=== PATIENT | female | born 1960 | race Caucasian/White ===

== ENCOUNTER → 2016-10-02 | Outpatient (CLI) | payer BC ==
[~2016-10-02] MED LIST: ASPIRIN 32325 MG/TAB PO; CALTRATE 600600 MG PO; CEPACOL SORE TH1 LO8 MM; EFFE25TA; NO HOME MEDICATIONS; NOLVADEX 1010 MG/TAB; NORCO 325 MG-51 TAB PO; NORCO 325 MG-7.1 TAB PO
== END ==
LOC: MC.RAD 10:54
DX: Z12.31 Encounter for screening mammogram for malignant neoplasm of breast (principal)

== ENCOUNTER → 2017-10-15 | Outpatient (CLI) | payer BC | LOC: MC.RAD 12:21 | DX: Z12.31 Encounter for screening mammogram for malignant neoplasm of breast (principal); Z85.3 Personal history of malignant neoplasm of breast; Z98.890 Other specified postprocedural states ==

== ENCOUNTER → 2019-01-13 | Outpatient (CLI) | payer BC | LOC: MC.RAD 12:17 | DX: Z12.31 Encounter for screening mammogram for malignant neoplasm of breast (principal); N60.31 Fibrosclerosis of right breast; Z90.11 Acquired absence of right breast and nipple ==

== ENCOUNTER → 2020-10-06 | Outpatient (CLI) | payer OTHER ==
[~2020-10-06] MED LIST changes: +BACTRIM DS 8001 TAB PO; +PYRIDIUM 100MG100 MG PO
== END ==
LOC: MC.RAD 10:51
DX: N63.10 Unspecified lump in the right breast, unspecified quadrant (principal); N63.20 Unspecified lump in the left breast, unspecified quadrant

== ENCOUNTER 2020-12-27 05:25 | Day surgery (SDC) | payer SELFPAY ==
[2020-12-27] VITALS (19 sets, daily range): BP systolic 117–150; BP diastolic 70–96; PULSE 16–89; TEMP 98–99.1
[~2020-12-27] VITALS: Ht 154.9 cm; Wt 76.9 kg
[~2020-12-27 05:25] MED LIST changes: -BACTRIM DS 8001 TAB PO; -PYRIDIUM 100MG100 MG PO
[2020-12-27] MEDS ORDERED: BACTRIM DS 8001 TAB PO (05:56)
--- NOTE | 2020-12-27 08:40 | NUR ---
pt in CT scanner, monitor connected, Dr Bazzi in room with Dr Roy
--- NOTE | 2020-12-27 09:00 | NUR ---
Dr Bazzi con't with procedure, pt states not having any pain at this time, will con't to monitor
--- NOTE | 2020-12-27 09:18 | NUR ---
pt states is "hurting" feeling guide wire at this time fentanyl 25mcg iv and versed at 0920 0.5mg iv given for relief
--- NOTE | 2020-12-27 09:25 | NUR ---
fentanyl 25mcg iv repeated for pain with tube advancement, neph tube being secured by Dr Bazzi to left flank area
--- NOTE | 2020-12-27 09:30 | NUR ---
procedure completed, report called to same day surgery, pt transferred to cart and transferred back to same day surgery/
--- NOTE | 2020-12-27 09:45 | NUR ---
Patient returns from radiology procedure with radiology staff at 0945. She has gauze covering the insertion site of the tube placed in her left flank. The gauze is moderately saturated with serosanguinous fluid. It is not leaking around the tegaderm covering it. The tube is secured under the tegaderm. The patient is lying on her right side, with Dr. Bazzi's permission. VSS on room air.
--- NOTE | 2020-12-27 11:17 | NUR ---
Patient to the OR at this time with OR staff.
[2020-12-27] MEDS ORDERED: PYRIDIUM 100MG100 MG PO (12:49)
[2020-12-27] MEDS ORDERED: NORCO 325 MG-51 TAB PO (12:50)
--- NOTE | 2020-12-27 14:49 | NUR ---
Pt recently arrived to the floor from [facility]. She is alert although very drowsy. She does have some complaints of nausea, but reports overall feeling better. Crenshaw in place, light red output, no clots noted. Daughter present in room upon arrival, just left for a while.
--- NOTE | 2020-12-27 15:03 | NUR ---
Pt doing well. Continues to rest with eyes closed, even non labored breathing. Output is light red in color
--- NOTE | 2020-12-27 16:33 | NUR ---
1630- needs to go to BR TO VOID- REPOSITIONED RAGSDALE LINE;RELIEF PT. SAYS; URINE IS DARK RED.
--- NOTE | 2020-12-27 18:00 | NUR ---
Pt reports feeling much better. Dinner ordered and gave her ice water. Pt is starting to wake up some, but is still pretty drowsy. No needs verbalized
--- NOTE | 2020-12-27 20:30 | NUR ---
Initial shift assessment done- alert/oriented x3, drowsy, states she still feels sleepy, wondering where her glasses and cell phone is-- did fing for her in her belonging bags in closet-- is taking just a few sips of water-encouraged to drink. Denies pain at this time- states a little "sore" but does not want anything for this, Crenshaw to DD with red urine-flowing good- no clots seen. o2 at 1L/nc. Did C&DB, Called respiratory therapy to bring up an IS as ordered.
[2020-12-28 00:16] VITALS: BP 123/83; PULSE 98; TEMP 99
[2020-12-28 04:30] VITALS: BP 117/71; PULSE 88; TEMP 99.1
--- NOTE | 2020-12-28 06:01 | NUR ---
Quiet night-- did sleep well, VSS, o2 off at this time-- sats good on room air, using IS, C&DB, Crenshaw with 1000cc this shift of rust colored urine- pt denies pain- no pain meds given
[2020-12-28 07:32] VITALS: BP 102/70; PULSE 100; TEMP 97.8
--- NOTE | 2020-12-28 08:00 | NUR ---
PATIENT IS ALERT AND ORIENTED X4. PATIENT TO HAVE RAGSDALE DISCONTINUED AND TO POSSIBLY BE DISCHARGED TODAY. URINE IS REDDISH COLOR. PATIENT HAS IV TO THE LEFT WRIST. PATIENT IS TOLERATING GENERAL DIET. PATIENT HAS ANDRE HOSE AND SCDS ON. NO FURTHER NEEDS AT THIS TIME. HEAD TO TOE ASSESSMENT COMPLETE. CALL LIGHT WITHIN REACH.
[2020-12-28 11:16] VITALS: BP 121/67; PULSE 103; TEMP 98.3
--- NOTE | 2020-12-28 12:06 | NUR ---
Sw met with the pt who stated her preference to return home once medically stable. The pt lives at home alone, but will have her son come help her. NK is Fatmata Marquis (ph [phone]). The pt states she independent on all ADLS and does not use any DME. The pt does not have a DPOA_HC and is not interested in one at this time. The pt PCP is Dr. Santos and she gets her medications from [facility]. The pt states she quiet her job and she does not have a health insurance at this time. She was giving a assistance application. She states she will fill it out after her surgery is complete. No other needs stated at this time. Sw to await further recommendations and follow up as needed. D/C: HOME
--- NOTE | 2020-12-28 13:00 | NUR ---
PATIENT READY TO DISCHARGE. PATIENT WAS TAUGHT ABOUT NEW MEDICATIONS AND ABOUT DRINKING LOTS OF FLUIDS. PATIENT TOLERATED LUNCH WELL AND IS AWAITING RIDE HOME. IV AND RAGSDALE DISCONTINUED. NO FURTHER NEEDS AT THIS TIME.
--- NOTE | 2020-12-30 11:20 | NUR ---
First visit from the heading machine operator. No needs right now.
== END 2020-12-28 13:00 | disposition home or self-care (01) ==
LOC: SDCO 05:25 → SURG 14:20 → SDCO 12-28 13:00
DX: N20.0 Calculus of kidney (principal); F17.210 Nicotine dependence, cigarettes, uncomplicated; Z20.822 Contact with and (suspected) exposure to COVID-19; Z85.3 Personal history of malignant neoplasm of breast
CPT/HCPCS: OP; A4314; C1726; C1729; C1769; C1894; C2617; J0690; J2250; J2550; J2704; J3010; J7120; Q9967

== ENCOUNTER → 2022-11-01 | Outpatient (CLI) | payer OTHER ==
[~2022-11-01] MED LIST changes: +BACTRIM DS 8001 TAB PO; +PYRIDIUM 100MG100 MG PO
== END ==
LOC: MC.RAD 13:59
DX: N63.0 Unspecified lump in unspecified breast (principal); Z98.890 Other specified postprocedural states